=== PATIENT | male | born 1935 | race Caucasian/White ===

== ENCOUNTER 2019-09-10 12:15 | Inpatient (IN) | payer MEDICARE ==
[2019-09-10] VITALS (14 sets, daily range): BP systolic 92–120; BP diastolic 53–73
[~2019-09-10] VITALS: Ht 177.8 cm; Wt 65.0 kg
[~2019-09-10 12:15] MED LIST: AMLODIPINE10 MG PO; CALCIUM + D600 MG PO; COLACE100 MG PO; COLACE50 MG PO; FLEET RE; FLEXERIL10 MG PO; FOLIC ACID1 MG PO; HYDROCO/APAP1 T13 OR; IPRATROPIU0.5 MG/3 M NEB; LEVAQUIN500 MG PO; LORTAB 10 PO; MEDDOSEPAK PO; METHOTREXATE2.5 MG PO; METOPROL TAR25 MG PO; METOPROLOL25 M1 OR; MILK OF MAG30 ML/UDC PO; MIRALAX3350 N1 PO; NORCO1 TA1 PO; OMEPRAZOLE20 MG PO; OXYCODO-APAP1 TA1 OR; OXYCODONE HCL5 MG PO; OXYCODONE15 MG OR; PERCOCET 5/325M1 TAB PO; PREDNISONE20 MG PO; SM OMEPRAZOL20 MG OR; STOOL SOFTENER100 MG OR; ULTRAM50 MG OR
--- NOTE | 2019-09-10 12:15 | NUR ---
PT TO ROOM VIA EMS STRETCHER. PT POOR HISTORIAN AND HARD OF HEARING.
--- NOTE | 2019-09-10 12:30 | NUR ---
ADENOSINE 12MG RAPID IVP ADMINISTERED FOR HR 167. PT WITH COUGH AND SOB. DR TURCIOS AT BEDSIDE, NO NOTABLE CHANGE IN HR,SEE NEW ORDERS
[2019-09-10 12:57] LABS: HEMATOCRIT 40.9 % (39.0-50.0); HEMOGLOBIN 14.1 g/dl (14.0-18.0); IMMATURE GRANULOCYTES 0.4 % (0.0-5.0); MEAN CORPUSCULAR HGB 29.9 pG CALC (26.0-32.0); MEAN CORPUSCULAR HGB CONC 34.5 g/L CALC (32.0-36.0); NEUT# 7.19 thou/uL (1.82-7.42); RED BLOOD COUNT 4.71 mill/uL (4.70-6.10); RED CELL DISTRI WIDTH 13.4 % (11.5-15.5)
--- NOTE | 2019-09-10 12:57 | NUR ---
HR DECREASED TO 97 AT THIS TIME; CARDIZEM DRIP INFUSING AT 10MG/HR TO LFA
[2019-09-10 12:58] LABS: MEAN CELL VOLUME 86.8 fL CALC (80.0-100.0)
[2019-09-10 13:07] LABS: ALBUMIN 3.2 g/dL (3.2-5.0); ALKALINE PHOSPHATASE 101 u/l (38-126); ANION GAP 15 (6-22 (CALC)); BUN 17 mg/dL (8-23); BUN/CREATININE RATIO 31 (12-20 (CALC)); CARBON DIOXIDE 21 mmol/l (22-30); CHLORIDE 102 mmol/l (95-108); CREATININE 0.6 mg/dL (0.7-1.3); GFR > 60 ML/MIN (>=60 (CALC)); GFR FOR AFR.AMER. > 60 ML/MIN (>=60 (CALC)); POTASSIUM 3.6 mmol/l (3.5-5.1); SGOT/AST 41 u/l (19-48); SODIUM 134 mmol/l (137-146); TOTAL PROTEIN 7.4 g/dL (6.3-8.2)
--- NOTE | 2019-09-10 13:15 | NUR ---
CARDIZEM TITRATED TO 15MG/HR TO 18G LFE; HR READING 103; B/P 114/77
[2019-09-10 13:16] LABS: ACT PARTIAL THROMBO TIME 30.1 SECONDS (20.0-32.5); D-DIMER 1.35 mg/L (0.19-0.60); INTERNATIONAL NORMALIZED RATIO 1.2 RATIO (0.7-1.3)
[2019-09-10 13:19] LABS: MYOGLOBIN 218 ng/mL (0 - 121)
--- NOTE | 2019-09-10 14:10 | NUR ---
PT RESTING ON STRETCHER; SANDWITCH GIVE; CARDIZEM INFUSING @15MG/HR; VSS; STRONG PRODUCTIVE COUGH NOTED; ANTIBIOTICS INFUSING TO RAC SITE APPEARS HEALTHY
--- NOTE | 2019-09-10 15:11 | NUR ---
PT RESTING ON STRETCHER; VSS; CARDIZEM INFUSING @15MG/ML; HR 94; PO FLUIDS PROVIDED; AWAITING ORDERS TO ICU AT THIS TIME
--- NOTE | 2019-09-10 15:40 | NUR ---
INITIATED NEB TX FOR AUDIBLE WHEEZING AND O2 SAT 93% ON O2@2LPM VIA NC, PT HAS LOOSE PRODUCTIVE YELLOW SPUTUM.ORDER RECEIVED FROM JOHN MELENDEZ APRN
--- NOTE | 2019-09-10 16:00 | NUR ---
PT TRANSPORTED TO ICU VIA STRETCHER ON CONTINUOUS COMMUNITY RECREATION COORDINATOR IN NO OBVIOUS DISTRESS
--- NOTE | 2019-09-10 16:06 | NUR ---
male pt received from ER via stretcher accompanied by Juan José Rose RN to ICU bed 4 in stable condition; pt able to assist with transfer to bed; admission assessment completed at this time; pt very very hard of hearing; pt also a poor poor histoian; h&p obtained from prev admission/ sbar; pt c/c of the "flu"; pt denies pain; no n/v noted; resp even and unlabored; exertional sob noted; lungs coarse with wheezing throughout; skin color wnl; o2 per nc at 3l; productive cough of greenish thick sputum; hr reg; weak pedal pulses; no edema noted; sr on monitor; abd soft with bs present; no bm noted per automobile and property underwriter; no urine to inspect at this time; urinal placed at bedside; #18 ems site to lfa patent with cardizem gtt infusing at 15mg/hr; #18 flushed and patent to rac; no redness or edema noted at sites; pt admits to smoking marijuana and drinking beer; plan of care/ meds explained; call light within reach; will continue to monitor
--- NOTE | 2019-09-10 17:30 | NUR ---
Raji Robles NP called per this creative services writer; neb tx requested for wheezing and sob; will continue to monitor
--- NOTE | 2019-09-10 18:06 | NUR ---
awake in bed; no apparent distress noted; resp even and unlabored; wheezing throughout; o2 per nc; iv intact and patent with cardizem gtt infusing at 15 mg/hr; no redness or edema noted at site; sr on monitor; cardizem gtt titrated to 10 mg/hr for bp of 98/61; call light within reach
--- NOTE | 2019-09-10 18:25 | NUR ---
Dr Byrnes present at bedside to assess pt and discuss plan of care
--- NOTE | 2019-09-10 19:45 | NUR ---
PATIENT WAS NOTIFIED OF CT THORAX ORDER, HE AGREES. PATIENT WAS TRANSFERRED TO WITH ASSIST X1, ON 3L/MIN NC.
--- NOTE | 2019-09-10 20:02 | NUR ---
PATIENT SAFELY TRANSFERRED BACK TO BED, ON 3L/MIN NC./ AUDIBLE WHEEZES AND DOES BECOME SOB WITH EXERTION. CALL LIGHT WITHIN REACH. WILL CONTINUE TO MONITOR.
--- NOTE | 2019-09-10 21:10 | NUR ---
PATIENT WAS ABLE TO VOID IN URINAL, UA COLLECTED. PATIENT ALSO AGREES TO GET WASHED UP.
[2019-09-10 21:26] LABS: URINE BLOOD DIPSTICK TRACE-INTACT (NEGATIVE); URINE COLOR AMBER; URINE GLUCOSE - DIPSTICK NEGATIVE (NEGATIVE); URINE KETONE NEGATIVE (NEGATIVE); URINE LEUK ESTERASE NEGATIVE (NEGATIVE); URINE NITRITE - DIPSTICK NEGATIVE (Negative); URINE PROTEIN - DIPSTICK 30 mg/dL (NEG-TRACE)
[2019-09-10 21:27] LABS: URINE BILIRUBIN - DIPSTICK NEGATIVE (NEGATIVE)
--- NOTE | 2019-09-10 21:45 | NUR ---
PATIENT WAS ABLE TO SIT ON SIDE OF BED TO GET WASHED UP, HE WAS ABLE TO PARTICIPATE. DOES BECOME SOB WITH EXERTION, ON 3L/MIN NC, SATS 95%. SR ON TELEMETRY. CLEAN LINEN PLACED ON BED WELL. PATIENT OFFERED A SNACK AND AGREED TO ICE CREAM. HOB NEAR 90 DEGREES. CALL LIGHT WITHIN REACH.
--- NOTE | 2019-09-10 23:56 | NUR ---
CSLLED ND SPOKE TO DR LÓPEZ REGARDING PATIENT HAS BEEN COUGHING THROUGH THE NIGHT, NEW PRN MEDICATION ORDERS RECEIVED FOR COUGH.
[2019-09-11] VITALS (11 sets, daily range): BP systolic 115–153; BP diastolic 65–97
--- NOTE | 2019-09-11 00:50 | NUR ---
PATIENT WAS PULLED UP IN BED PER REQUEST, COUGH MEDICATION GIVEN. NO OTHER NEEDS AT THIS TIME. CALL LIGHT WITHIN REACH.
--- NOTE | 2019-09-11 02:00 | NUR ---
PATIENT LIES ON HIS R-SIDE. RESTS WITH EYES CLOSED, HOB 30 DEGREES. NO COUGHING AT THIS TIME. CALL LIGHT WITHIN REACH. WILL CONTINUE TO MONITOR.
--- NOTE | 2019-09-11 04:10 | NUR ---
PATIENT LIES ON HIS LEFT SIDE. HE DESATED DOWN TO 85%, HIS NASAL CANNULA WAS OFF, PATIENT EDUCATED TO KEEP IT ON. NO ACUTE DISTRESS SHOWN, INTERMITTENT COUGHING. NO NEEDS AT THIS TIME. CALL LIGHT WITHIN REACH. WILL CONTINUE TO MONITOR.
[2019-09-11 05:40] LABS: HEMATOCRIT 35.9 % (39.0-50.0); HEMOGLOBIN 12.2 g/dl (14.0-18.0); MEAN CELL VOLUME 87.1 fL CALC (80.0-100.0); MEAN CORPUSCULAR HGB 29.6 pG CALC (26.0-32.0); RED BLOOD COUNT 4.12 mill/uL (4.70-6.10); RED CELL DISTRI WIDTH 13.6 % (11.5-15.5)
--- NOTE | 2019-09-11 05:49 | NUR ---
PATIENT LFA EMS SITE DISCONTINUED. NEW ICED WATER PROVIDED. NEW URINAL, AND CUP PROVIDED FOR HIM TO SPIT IN. NEW SHEET AND WARM BLANKET PROVIDED. INTERMITTENT COUGH. CALL LIGHT WITHIN REACH.
--- NOTE | 2019-09-11 06:00 | NUR ---
PATIENT LAYS ON HIS LEFT SIDE, NO ACUTE DISTRESS SHOWN. NO NEEDS AT THIS TIME. IS AWAKE. CALL LIGHT WITHIN REACH.
[2019-09-11 06:03] LABS: ANION GAP 11 (6-22 (CALC)); BUN 14 mg/dL (8-23); BUN/CREATININE RATIO 36 (12-20 (CALC)); C-REACTIVE PROTEIN > 9.0 mg/dL (0-0.9); CARBON DIOXIDE 22 mmol/l (22-30); CHLORIDE 107 mmol/l (95-108); CREATININE 0.4 mg/dL (0.7-1.3); GFR > 60 ML/MIN (>=60 (CALC)); GFR FOR AFR.AMER. > 60 ML/MIN (>=60 (CALC)); MAGNESIUM 1.9 mg/dL (1.6-2.3); POTASSIUM 3.8 mmol/l (3.5-5.1); SODIUM 136 mmol/l (137-146)
--- NOTE | 2019-09-11 06:04 | NUR ---
RT IN ROOM TO PERFORM EKG
--- NOTE | 2019-09-11 06:45 | NUR ---
RECIEVED REPORT FROM MARTHA LIVINGSTON. ASSUMED PT CARE.
--- NOTE | 2019-09-11 07:30 | NUR ---
PT RESTING IN BED, VERY WAINWRIGHT. PT A&OX3, ABLE TO MAKE NEEDS KNOWN.PT CONTINUES WITH PRODUCTIVE COUGH, BLOODY SPUTUM, CULTURE PENDING. RESPIRATIONS EVEN/UNLABORED, BCK203% PT REMAINS SB/SR ON TELEMTRY WITH 1*BLOCK. PT REMAINS WEAK WITH AX1, BSX4 ACTIVE, LBM 10-16-19. 18G TO RAC WITH NS@100ML/HR, NO S/S OF INFILTRATION OR INFECTION AT SITE. CALL LIGHT IN REACH, WILL MONITOR.
--- NOTE | 2019-09-11 08:00 | NUR ---
PT REPOSITIONED, BREAKFAST TRAY SET UP.
--- NOTE | 2019-09-11 09:30 | NUR ---
DR. VALLE AT BEDSIDE FOR ASSESSMENT AND TO DISCUSS PLAN OF CARE. NEW ORDERS RECIEVED.
--- NOTE | 2019-09-11 10:30 | NUR ---
PT FRIEND/CAREGIVER JJ ARRIVED AT BEDSIDE. PT GAVE PERMISSION TO DISCUSS CARE/PROGNOSIS. JJ # [phone]. JJ STATED HE HAS RECIEVED CARE WITH [facility] IN [place], BUT NOT IN A LONG TIME, COULD NOT GIVE ANY HISTORY ON PT.
--- NOTE | 2019-09-11 11:30 | NUR ---
REPOSITIONED PT, LUNCH TRAY SET UP. PT COUGHING LESS, NOTED DECREASE IN COUGHING AND SPUTUM PRODUCTION. WILL MONITOR.
--- NOTE | 2019-09-11 12:56 | NUR ---
PT RESTING IN BED, RESPIRATION EVEN/UNLABORED, O2 VIA NC CONTINUES, PT OFFERS NO COMPLAINTS AT THIS TIME. WILL MONITOR.
--- NOTE | 2019-09-11 14:47 | NUR ---
PT RESTING IN BED WITH EYES CLOSED, RESPIRATIONS EVEN/UNLABORED. WILL MONITOR
--- NOTE | 2019-09-11 15:45 | NUR ---
FRIEND JJ ARRIVED AT BEDSIDE. PT COUGHING UP BLOOD TINGED SPUTUM, COUGH SYRUP GIVEN ORDERED. PT REPOSITIONED FOR COMFORT. PT WATCHING TV.
--- NOTE | 2019-09-11 17:03 | NUR ---
PT RESTING IN BED WITH EYES CLOSED, NO S/S OF DISTRESS AT THIS TIME. WILL MONITOR.
--- NOTE | 2019-09-11 17:55 | NUR ---
DINNER TRAY ARRIVED ON UNIT. PT REPOSITIONED, TRAY SET UP FOR PT.
--- NOTE | 2019-09-11 18:50 | NUR ---
PATIENT SHOWS NO ACUTE DISTRESS, DRINKS HIS ICED WATER/, HAS NO COMPLAINTS. INTERMITTENT COUGHING OBSERVED. CALL LIGHT WITHIN REACH.
--- NOTE | 2019-09-11 19:35 | NUR ---
PATIENT LAYS ON HIS LEFT SIDE. HOB ABOUT 25 DEGREES. HE DOES HAVE INTERMITENT COUGHING, BLOOD TINGED. SR ON TELEMETRY, DID HAVE 6 BEATS OF V-TACH, ASYMPTOMATIC. BECOMES SOB ONLY WITH EXERTION. USED HIS URINAL, VOIDED YELLOW AND CLEAR URINE. RAC 18G IV INTACT AND HAS NS AT 100ML/HR INFUSING. JANET HOSE INTACT. HEAD TO TOE NURSING ASSESSMENT PERFORMED, SEE CHARTING. AFEBRILE. NO COMPLAINTS OF PAIN. NO OTHER NEEDS AT THIS TIME. POC FOR TONIGHT DISCUSSED. CALL LIGHT WITHIN REACH. WILL CONTINUE TO MONITOR.SELF REPOSITIONS FROM SIDE TO SIDE.
--- NOTE | 2019-09-11 21:20 | NUR ---
HAS LEFT, DID SUCTIONING AND MOUTH CARE, REQUESTED TO PROVIDE MOUTH SWABS SOAKED WITH ICED WATER BECAUSE PATIENT LIKES TO SUCK ON THEM, PATIENT ABLE TO ANSWER HIS BY NODDING HIS HEAD YEW OR NO WHEN SHE ASKED HIM IF HE WANTED MORE OF THE SWABS. PATIENT WAS ALSO SWITCHED TO NC AT 6L/MIN DUE TO HIM TRYING TO TAKE THE NONREBREATHER OFF BY MANEUVERING IT WITH HIS MOUTH AND REQUESTED TO PLACE PATIENT ON NC. WILL CONTIUE TO MONITOR.
--- NOTE | 2019-09-11 21:55 | NUR ---
PATIENT LAYS ON HIS LEFT SIDE. RESTS WITH EYES CLOSED. NO ACUTE DISTRESS SHOWN. CALL LIGHT WITHIN REACH. WILL CONTINUE TO MONITOR.
--- NOTE | 2019-09-11 22:35 | NUR ---
PATIENT TRIED TO GET OUT OF BED. WAS TRYING TO PULL OFF HIS TELEMETRY AND PULSE OX OFF, STATES, "I GOTTA GO PEE." PATIENT WAS ASISSTED TO BSC WITH ASSIST X2. ONLY VOIDED. WAS WASHED UP. LINENS CHANGED. NOW CALM AND LAYS ON HIS LEFT SIDE. CALL LIGHT WITHIN REACH.
--- NOTE | 2019-09-11 23:35 | NUR ---
PROVIDED PATIENT WITH WET SWAB AND ALSO SUCTIONED, NO SECRETIONS NOTED. AGONAL BREATHING PRESENT. SATS 94% ON NOW 5L/MIN NC. REMAINS DRY, NO URINE NOTED. WILL CONTINNUE TO MONITOR.
[2019-09-12] VITALS (11 sets, daily range): BP systolic 121–154; BP diastolic 67–91
--- NOTE | 2019-09-12 00:50 | NUR ---
PATIENT WAS PULLED UP. USED URINAL. BECOMES SOB WITH EXERTION, AUDIBLE WHEEZING. NO OTHER NEEDS AT THIS TIME. CALL LIGHT WITHIN REACH.
--- NOTE | 2019-09-12 02:00 | NUR ---
PATIENT LIES ON HIS LEFT SIDE, NO ACUTE DISTRESS SHOWN, RESTS WITH EYES CLOSED. CALL LIGHT WITHIN REACH.
--- NOTE | 2019-09-12 04:00 | NUR ---
PATIENT LAYS ON HIS LEFT SIDE. RESTS WITH EYES CLOSED. NO ACUTE DISTRESS SHOWN. NO NEEDS AT THIS TIME, CALL LIGHT WITHIN REACH.
--- NOTE | 2019-09-12 05:29 | NUR ---
PATIENT HAS INTERMITTENT COUGHING, COUGH MEDICATION PROVIDED. REQUESTS TV ON, NOW WATCHING TV. NO OTHER NEEDS AT THIS TIME. CALL LIGHT WITHIN REACH.
--- NOTE | 2019-09-12 06:45 | NUR ---
RECIEVED REPORT FROM MARTHA LIVINGSTON. ASSUMED PT CARE.
--- NOTE | 2019-09-12 06:45 | NUR ---
RECIEVED REPORT FROM MARTHA LIVINGSTON. ASSUMED PT CARE.
--- NOTE | 2019-09-12 07:11 | NUR ---
PT RESTING IN BED WITH EYES CLOSED,COMFORT CARE ONLY. REMAINS MOSTLY NON-RESPONSIVE, WILL OPEN EYES OCCASIONALLY WITH CARE OR REPOSITIONING. RESPIRATIONS SHALLOW/AGONAL, 02@5LPM VIA NC. MOUTHCARE AND PERICARE DONE. AFEBRILE. PT ST ON TELEMETRY, HR 101. 22G TO LAC/SL, FLUSHES WITHOUT DIFFICULTY, NO S/S OF INFILTRATION OR INFECTION AT SITE. DROPLET PRECATIONS REMAIN. WILL MONITOR CLOSELY.
--- NOTE | 2019-09-12 07:15 | NUR ---
PT REPOSITIONED, SITTING ON SIDE OF BED, BREAKFAST TRAY SET UP.
--- NOTE | 2019-09-12 07:19 | NUR ---
JESSICA RN WITH [facility] CALLED, NURSE WILL BE HERE APPROX 10:30-11AM.
--- NOTE | 2019-09-12 07:50 | NUR ---
PT SITTTING UP IN BED WATCHING TV, A&OX3, ABLE TO MAKE NEEDS KNOWN. IQUGMIUT. SOB WITH EXERTION, AUDIBLE WHEEZING THROUGHOUT, SA02@93% ON 3LPM VIA NC, AFEBRILE, CONTINUES WITH PRODUCTIVE COUGH, CLEAR THICK SPUTUM WITH SCANT BLOOD TINGE, MUCH BETTER THAN YESTERDAY. ABDOMEN SOFT, NON TENDER, BSX4 ACTIVE. CALL LIGHT IN REACH, WILL MONITOR.
--- NOTE | 2019-09-12 08:56 | NUR ---
LORI BARRERA AT BEDSIDE FOR ASSESSMENT AND TO DISCUSS PLAN OF CARE.
--- NOTE | 2019-09-12 09:19 | NUR ---
DAUGHTER NICK ARRIVED AT BEDSIDE
--- NOTE | 2019-09-12 10:13 | NUR ---
ARRIVED AT BEDSIDE, SWABBING PT MOUTH WITH ICE WATER. [facility] RN AND PT DAUGHTER REMAIN AT BEDSIDE. PER [facility] NURSE ATTEMPTING TO MAKE ARRANGEMENTS TO TRANSFER PT HOME WITH HOSPICE CARE. WILL MONITOR
--- NOTE | 2019-09-12 10:18 | NUR ---
PT SITTING UP IN BED, WATCHING TV. CONTINUES INTERMITTENT COUGH, PRODUCING THICK CLEAR MUCUS, SCANT AMOUNT OF BLOOD TINGE CONTINUES. AUDIBLE WHEEZING REMAINS. PT OFFERS NO COMPLAINTS AT THIS TIME. CALL LIGHT IN REACH. WILL MONITOR.
--- NOTE | 2019-09-12 11:00 | NUR ---
DR. VALLE AND LORI BARRERA AT BEDSIDE FOR ASSESSMNET AND TO DISCUSS PLAN OF CARE, NEW ORDERS RECIEVED.
--- NOTE | 2019-09-12 11:20 | NUR ---
XRAY AT BEDSIDE
--- NOTE | 2019-09-12 11:34 | NUR ---
MAURIZIO MARTINO ARRIVED AT BEDSIDE.
--- NOTE | 2019-09-12 11:45 | NUR ---
INSERT 16FR HUBBARD FOR STRICT I&O'S USING STERILE TECHNIQUE, 10ML BALLOON INFLATED, IMMEDIATE URINE RETURN. PT TOLERATED WELL.
--- NOTE | 2019-09-12 12:03 | NUR ---
PT REPOSITINED, LUNCH TRAY SET UP
--- NOTE | 2019-09-12 13:24 | NUR ---
PT AT BEDSIDE FOR EVALUATION.
--- NOTE | 2019-09-12 14:03 | NUR ---
PT RESTING IN BED, PRODUCTIVE COUGH CONTINUES, 1800ML URINE OP. HUBBARD REMAINS PATENT, DRAINING TO BSD VIA GRAVITY. CALL LIGHT IN REACH. WILL MONITOR.
--- NOTE | 2019-09-12 14:30 | NUR ---
PT FRIEND AT BEDSIDE FOR VISIT
--- NOTE | 2019-09-12 15:00 | NUR ---
RT AT BEDSIDE FOR TX.
--- NOTE | 2019-09-12 15:26 | NUR ---
PT RESTING IN BED WITH EYES CLOSED, OFFERS NO COMPLAINTS AT THIS TIME.
--- NOTE | 2019-09-12 16:51 | NUR ---
PT RESTIN IN BED , WATCHING TV. HUBBARD REMAINS PATENT DRAINING CLEAR YELLOW URINE TO BSD VIA GRAVITY. SR ON TELEMETRY, HR 75. INTERMITTENT COUGH CONTINUES. CALL LIGHT IN REACH, WILL MONITOR.
--- NOTE | 2019-09-12 17:13 | NUR ---
PT REPOSITIONED, DINNER TRAY SET UP.
--- NOTE | 2019-09-12 18:07 | NUR ---
PT RESTING IN BED WATCHING TV, STATED. "MAN THEY MUST HAVE PULLED 2 GALLON OFF ME, i FEEL SO MUCH BETTER." CALL LIGHT IN REACH, WILL MONITOR.
--- NOTE | 2019-09-12 19:00 | NUR ---
RECEIVED REPORT FROM AM NURSE. PATIENT CURRENTLY IN BED. PATIENT IN NO DISTRESS. PATIENT'S VITALS STABLE. ON OXYGEN 3L. WILL CONTINUE TO MONITOR.
--- NOTE | 2019-09-12 20:16 | NUR ---
BRENDA ROUNDED ON. PATIENT CURRENTLY IN BED RESTING. VITALS STABLE. NO SIGNS OF DISTRESS. PATIENT SELF REPOSITIONED. PATIENT PROVIDED WITH ICE WATER. NO OTHER REQUEST. WILL CONTINUE TO MONITOR.
--- NOTE | 2019-09-12 22:00 | NUR ---
spoke to regarding the patient having crackles and increased wheezing. dr. goldberg ordered 40mg lasix iv and also labs for the morning. patient is resting with no sign of distress. vitals stable. patient continues with nasal cannula 3l. will continue to monitor patient.
[2019-09-13] VITALS (17 sets, daily range): BP systolic 107–168; BP diastolic 60–91
--- NOTE | 2019-09-13 | NUR ---
patient rounded on. patient with increased cough, patient medicated with cough syrup. patient bringing up yellow colored phlegm. patient in no distress. patient vitals stable. will continue to monitor.
--- NOTE | 2019-09-13 02:00 | NUR ---
PATIENT SLEEPING. VITALS STABLE. WILL CONTINUE TO MONITOR.
--- NOTE | 2019-09-13 03:13 | NUR ---
PATIENT CONTINUES TO COUGH, BUT LESSENED. PATIENT SATS >93% ON NC 3L. PATIENT SLEEPING. NO SIGNS OF DISTRESS. VITALS STABLE. HUBBARD WITH GOOD URINE OUTPUT, URINE YELLOW AND CLEAR. WILL CONTINUE TO MONITOR PATIENT.
--- NOTE | 2019-09-13 04:00 | NUR ---
patient rounded on. patient awake resting in bed. patient with no signs of distress. vitals stable. will continue to monitor.
[2019-09-13 05:15] LABS: HEMATOCRIT 36.5 % (39.0-50.0); HEMOGLOBIN 12.6 g/dl (14.0-18.0); IMMATURE GRANULOCYTES 0.8 % (0.0-5.0); MEAN CELL VOLUME 86.1 fL CALC (80.0-100.0); MEAN CORPUSCULAR HGB 29.7 pG CALC (26.0-32.0); MEAN CORPUSCULAR HGB CONC 34.5 g/L CALC (32.0-36.0); NEUT# 11.57 thou/uL (1.82-7.42); RED BLOOD COUNT 4.24 mill/uL (4.70-6.10); RED CELL DISTRI WIDTH 13.3 % (11.5-15.5)
[2019-09-13 05:33] LABS: ALBUMIN 2.8 g/dL (3.2-5.0); ALKALINE PHOSPHATASE 87 u/l (38-126); BUN 14 mg/dL (8-23); BUN/CREATININE RATIO 30 (12-20 (CALC)); CHLORIDE 96 mmol/l (95-108); CREATININE 0.4 mg/dL (0.7-1.3); GFR > 60 ML/MIN (>=60 (CALC)); GFR FOR AFR.AMER. > 60 ML/MIN (>=60 (CALC)); POTASSIUM 3.1 mmol/l (3.5-5.1); SGOT/AST 25 u/l (19-48); SODIUM 134 mmol/l (137-146); TOTAL PROTEIN 6.3 g/dL (6.3-8.2)
[2019-09-13 05:43] LABS: ANION GAP 10 (6-22 (CALC)); CARBON DIOXIDE 31 mmol/l (22-30)
[2019-09-13 05:44] LABS: BILIRUBIN, TOTAL 0.5 mg/dL (0.0-1.4)
--- NOTE | 2019-09-13 06:05 | NUR ---
RT AT BEDSIDE. PATIENT RESTING IN BED EATING. PATIENT REPOSITIONED IN BED. PATIENT WITH NO SIGNS OF DISTRESS. PT CONTINUES TO COUGH. CUP WITH SPUTUM AT BEDSIDE. NC IN PLACE 3L WITH OXYGEN SAT >93%. PATIENT WITH NO REQUEST. VITALS STABLE. WILL CONTINUE TO MONITOR.
--- NOTE | 2019-09-13 07:00 | NUR ---
REPORT RECEIVED FROM ESSIERN;PT RESTING IN SEMI FOWLERS POSITION,A&O X4;INTRODUCED SELF TO PT AND POC DISCUSSED;PT NOTED TO BE VERY HARD OF HEARING, BUT ABLE TO COMMUNICATE THROUGH WRITTEN COMMUNICATION;PT DENIES ANY CURRENT PAIN OR DISCOMFORTS,PAIN SCALE AND REPORTING EDUCATED;ASSESSMENT COMPLETED;RESPIRATIONS SHALLOW EVEN AND UNLABORED ON O2 @ 3L HUMIDIFED VIA NC, COARSE LUNG SOUNDS NOTED;PRODUCTIVE COUGH AT TIMES;ABDOMEN SOFT ON PALPATION AND ACTIVE IN ALL 4 QUADRANTS;LAST BM 09/10/19, WARM PRUNE JUICE AND MOM TO BE ADMINISTERED;HUBBARD CATHETER PATENT DRAINING CLEAR/YELLOW URINE TO GRAVITY, STAT LOCK NOTED TO RIGHT THIGH;STRONG PEDAL PULSES;GENERALIZED BRUSING NOTED, SKIN OTHERWISE INTACT;#18G TO RAC FLUSHED AND PATENT,SITE APPEARS HEALTHY;CARDIAC MONITORING READING ST 103;PT RE-POSITIONED INTO RECLINER WITH 1 PERSON ASSIST AND WEAK GAIT;BREAKFAST TRAY TO BE PROVIDED;PT DENIES ANY ADDITONAL NEEDS AND IS ENCOURAGED TO CALL FOR ASSISTANCE IF NEEDED;FALL PRECAUTIONS IN PLACE WITH CALL LIGHT IN REACH;WILL CONTINUE TO MONITOR
--- NOTE | 2019-09-13 08:45 | NUR ---
PT OOB RESTING IN RECLINER;RESPIRATIONS REMAIN EVEN AND UNLABORED ON O2 @ 3L VIA NC;FULL BATH PROVIDED INCLUDING HUBBARD CATHETER CARE, NEW GOWN, AND ORAL CARE;PT REPORTS LOWER BACK PAIN AND REQUESTS PRN PAIN MEDICATION, PT TO BE MEDICATED WITH PRN TYLENOL 650MG PO AND PILLOW PROVIDED FOR BACK;ABX HUNG AT THIS TIME AND INFUSING WITH EASE TO RAC;JOHN MELENDEZ,FITORP AT BEDSIDE DISCUSSING POC;PT DENIES ANY ADDITIONAL NEEDS;FRESH WATER PROVIDED;ENCOURAGED PT TO CALL FOR ASSISTANCE IF NEEDED;FALL PRECAUTIONS IN PLACE WITH CALL LIGHT IN REACH;WILL CONTINUE TO MONITOR
--- NOTE | 2019-09-13 09:07 | NUR ---
RT AT BEDSIDE ADMINISTERING BREATHING TREATMENT.
--- NOTE | 2019-09-13 09:20 | NUR ---
PT MEDICATED WITH PRN ROBITUSSIN 200MG PO FOR COUGH. IRA HUNG AT TO [facility] AT THIS TIME;PT DENIES ANY ADDITIONAL NEEDS;WILL CONTINUE TO MONITOR
--- NOTE | 2019-09-13 11:10 | NUR ---
PT OOB SLEEPING IN RECLINER;RESPIRATIONS EVEN AND UNLABORED ON O2 @ 3L VIA NC;NO S/S OF DISTRESS NOTED;CARDIAC MONITORING READING SR 73;HUBBARD CATHETER DRAINING CLEAR/YELLOW URINE TO GRAVITY;ASSESSMENT REMAINS UNCHANGED AT THIS TIME;FALL PRECAUTIONS REMAIN IN PLACE WITH CALL LIGHT IN REACH;WILL CONTINUE TO MONITOR
--- NOTE | 2019-09-13 11:35 | NUR ---
AND JOHN JIMENEZ,ANRP AT BEDSIDE DISCUSSING POC INCLUDING REHAB, PT VERBALIZES UNDERSTANDING.
--- NOTE | 2019-09-13 11:35 | NUR ---
VINCENT, CASE MANAGEMENT AT BEDSIDE
--- NOTE | 2019-09-13 13:11 | NUR ---
RESPIRATORY AT BEDSIDE ADMINISTERING BREATHING TREATMENT.
--- NOTE | 2019-09-13 14:10 | NUR ---
PT REMAINS OOB RESTING IN RECLINER WATCHING TV;RESPIRATIONS EVEN AND UNLABORED ON O2 @ 3L VIA NC;IV SOLUMEDROL PROVIDED PER ORDER;PT DENIES ANY CURRENT PAIN OR DISCOMFORTS;CARDIAC MONITORING READING SR 90'S;HUBBARD CATHETER REMAINS PATENT DRAINING TO GRAVITY WITH EASE;PT DENIES ANY ADDITIONAL NEEDS AT THIS TIME AND IS ENCOURAGED TO CALL FOR ASSISTANCE IF NEEDED;CALL LIGHT IN REACH;WILL CONTINUE TO MONITOR
--- NOTE | 2019-09-13 15:10 | NUR ---
PT RESTING IN RECLINER, RE-POSITIONED INTO BED PER REQUEST WITH ONE PERSON ASSIST AND WEAK GAIT;RESPIRATIONS REMAIN EVEN AND UNLABORED ON O2 @ 3L VIA NC;PT DENIES ANY CURRENT PAIN OR NEEDS;STEVIE CATETER PATENT;CARDIAC MONITORING IN PLACE;FRESH WATER PROVIDED;PT DENIES ANY ADDITIONAL NEEDS;ENCOURAGED TO CALL FOR ASSISTANCE IF NEEDED;FALL PRECAUTIONS IN PLACE WITH BED IN THE LOWEST POSITION AND CALL LIGHT IN REACH;WILL CONTINUE TO MONITOR
--- NOTE | 2019-09-13 15:50 | NUR ---
PT MEDICATED WITH PRN ROBITUSSIN 200MG PO PER REQUEST FOR COUGHING AND SCHEDULED POTASSIUM 40MEQ PO;PT DENIES ANY ADDITIONAL NEEDS;WILL CONTINUE TO MONITOR
--- NOTE | 2019-09-13 16:00 | NUR ---
UNABLE TO PRINT OUT TELE STRIP D/T PRINTER NOT WORKING.
--- NOTE | 2019-09-13 17:03 | NUR ---
RT AT BEDSIDE ADMINISTERING BREATHING TREATMENT.
--- NOTE | 2019-09-13 17:55 | NUR ---
PT RESTING IN SEMI FOWLERS POSITION REPORTS LOWER BACK PAIN RATING 8/10 ON THE PAIN SCALE AND REQUESTS PAIN MEDICATION;PT MEDICATED WITH PRN TYLENOL 650MG PO AT THIS TIME;PT RE-POSITIONED IN BED FOR COMFORT;RESPIRATIONS REMAIN EVEN AND UNLABORED ON O2 @ 3L VIA NC;IV SITE TO RAC PATENT;CARDIAC MONITORING READING SR 80'-90'S;HUBBARD CATHETER EMPTIED OF 950CC OF CLEAR/YELLOW URINE;PT DENIES ANY ADDITIONAL NEEDS AND IS ENCOURAGED TO CALL FOR ASSISTANCE IF NEEDED;FALL PRECAUTIONS IN PLACE WITH CALL LIGHT IN REACH;WILL CONTINUE TO MONITOR
--- NOTE | 2019-09-13 18:55 | NUR ---
RECEIVED REPORT FROM AM NURSE. PATIENT CURRENTLY IN BED. PATIENT IN NO DISTRESS. VITALS STABLE. WILL CONTINUE TO MONITOR PATIENT.
--- NOTE | 2019-09-13 20:26 | NUR ---
RESPIRATORY AT BEDSIDE. PATIENT DID HAVE EPISODE OF CONFUSION. PATIENT WAS STATING HE HAD TO PEE AND DID NOT REALIZE HE HAD A HUBBARD. PATIENT REORIENTED.
--- NOTE | 2019-09-13 22:01 | NUR ---
PATIENT ROUNDED ON. PATIENT IN BED- WITH NASAL CANNULA OFF. SAT >90%. NASAL CANNULA PLACED BACK ON. PATIENT CONTINUES TO COUGH AND PRODUCE SPUTUM. HUBBARD IN PLACE WITH CLEAR YELLOW URINE. PATIENTS LINENS CHANGED. PATIENT IN NO DISTRESS. NEW IV PLACE. VITALS STABLE. WILL CONTINUE TO MONITOR.
[2019-09-14] VITALS (16 sets, daily range): BP systolic 102–183; BP diastolic 56–105
--- NOTE | 2019-09-14 00:16 | NUR ---
PATIENT SLEEPING. PATIENTS VITALS STABLE. PT O2 >95% ON NASAL CANNULA 2L. PATIENT WITH NO SIGNS OF DISTRESS. WILL CONTINUE TO MONITOR.
--- NOTE | 2019-09-14 01:17 | NUR ---
PATIENT RESTING IN BED. VITALS OBTAINED- BLOOD PRESSURE 184/95. PLACED A CALL TO REGARDING ELEVATED BLOOD PRESSURE. I ALSO STATED THAT PATIENT WAS JUST RECENTLY HAVE A COUGHING SPELL. HE STATED TO RECHECK BLOOD PRESSURE WHEN PATIENT IS NOT COUGHING AND IF BLOOD PRESSURE CONTINUES TO RUN HIGH TO GIVE PATIENT CLONIDINE. WILL RECHECK AND CONTINUE TO MONITOR.
--- NOTE | 2019-09-14 02:49 | NUR ---
PATIENTS BLOOD PRESSURE REMAINS ELEVATED 179/90. PATIENT NO LONGER COUGHING. PATIENT ASLEEP. WILL GIVE CLONIDINE ORDERED. PATIENT IN NO SIGNS OF DISTRESS. PATIENT REMAINS ON O2 SATS >94%. WILL CONTINUE TO MONITOR PATIENT.
--- NOTE | 2019-09-14 04:00 | NUR ---
PATIENT SLEEPING. PATIENT WITH NO COMPLAINTS OF PAIN OR DISCOMFORT. PATIENT IN NO DISTRESS. PATIENT WITH NASAL CANNULA 2L. SATS >97%. PATIENTS HUBBARD WITH GOOD OUTPUT- CLEAR YELLOW URINE. WILL CONTINUE TO MONITOR PATIENT.
--- NOTE | 2019-09-14 05:00 | NUR ---
RT AT BEDSIDE. PATIENT AWAKE. PATIENT WITH NO SIGNS OF DISTRESS. PATIENT ADJUSTED IN BED. MEDICATIONS GIVEN. PATIENT WITH NO COMPLAINTS OF PAIN OR DISCOMFORT. PATIENTS VITALS STABLE- BLOOD PRESSURE BETTER. WILL CONTINUE TO MONITOR PATIENT.
[2019-09-14 05:26] LABS: HEMATOCRIT 40.3 % (39.0-50.0); HEMOGLOBIN 13.6 g/dl (14.0-18.0); MEAN CELL VOLUME 87.6 fL CALC (80.0-100.0); MEAN CORPUSCULAR HGB 29.6 pG CALC (26.0-32.0); MEAN CORPUSCULAR HGB CONC 33.7 g/L CALC (32.0-36.0); NEUT# 13.41 thou/uL (1.82-7.42); RED BLOOD COUNT 4.6 mill/uL (4.70-6.10); RED CELL DISTRI WIDTH 13.4 % (11.5-15.5)
[2019-09-14 05:47] LABS: BUN 14 mg/dL (8-23); BUN/CREATININE RATIO 34 (12-20 (CALC)); CARBON DIOXIDE 28 mmol/l (22-30); CHLORIDE 99 mmol/l (95-108); CREATININE 0.4 mg/dL (0.7-1.3); GFR > 60 ML/MIN (>=60 (CALC)); GFR FOR AFR.AMER. > 60 ML/MIN (>=60 (CALC)); SODIUM 133 mmol/l (137-146)
--- NOTE | 2019-09-14 05:50 | NUR ---
ASSISTED ACCOUNT DEVELOPMENT ASSOCIATE WITH POSITIONING PATIENT FOR XRAY.
[2019-09-14 05:52] LABS: ANION GAP 10 (6-22 (CALC))
[2019-09-14 05:53] LABS: POTASSIUM 4.1 mmol/l (3.5-5.1)
--- NOTE | 2019-09-14 06:03 | NUR ---
PATIENT AWAKE AND SITTING UP IN BED. PATIENT CONTINUES WITH COUGH- PATIENT WITH NASAL CANNULA 2L. PATIENT WITH NO COMPLAINTS OF PAIN OR DISCOMFORT. VITALS STABLE. BLOOD PRESSURE IMPROVING. WILL CONTINUE TO MONITOR PATIENT.
--- NOTE | 2019-09-14 06:55 | NUR ---
REPORT RECEIVED FROM MARTHA FOUNTAIN;PT APPEARS TO BE SLEEPING IN SEMI FOWLERS POSTIION;RESPIRATIONS EVEN AND UNLABORED ON O2 @ 3L VIA NC;NO S/S OF DISTRESS NOTED;CARDIAC MONITORING IN PLACE;FALL PRECAUTIONS NOTED WITH BED IN THE LOWEST POSITION AND CALL LIGHT IN REACH;WILL CONTINUE TO MONITOR
--- NOTE | 2019-09-14 07:15 | NUR ---
PT RESTING IN SEMI FOWLERS POSITION,A&O X4 BUT VERY HARD OF HEARING;WRITTEN COMMUNICATION PROVIDED AND INTRODUCED SELF TO PT AND POC DISCUSSED;PT DENIES ANY CURRENT PAIN OR DISCOMFORTS,PAIN SCALE AND REPORTING EDUCATED;ASSESSMENT COMPLETED;RESPIRATIONS EVEN AND UNLABORED,SHALLOW ON O2 @ 3L HUMIDIFIED VIA NC, COARSE LUNG SOUNDS;PRODUCTIVE COUGH AT TIMES;ABDOMEN DISTENDED/SOFT ON PALPATION AND ACTIVE IN ALL 4 QUADRANTS;HUBBARD CATHETER PATENT DRAINING CLEAR/YELLOW URINE TO GRAVITY WITH EASE, STAT LOCK TO RIGHT THIGH;STRONG PEDAL PULSES;GENERALIZED BRUISING NOTED BUT SKIN OTHERWISE INTACT;CARDIAC MONITORING READING SR 80'S-90'S;#24G TO RIGHT HAND AND #18G TO RAC FLUSHED AND PATENT, BOTH SITES APPEAR HEALTHY;PT ASSISTED TO RECLINER WITH 1 PERSON ASSIST AND WEAK GAIT;BATH,HUBBARD CARE, AND ORAL CARE PROVIDED;NEW LINENS AND GOWN APPLIED;BREAKFAST TRAY PROVIDED AND FRESH WATER AT THIS TIME;PT DENIES ANY ADDITIONAL NEEDS AND IS ENCOURAGED TO CALL FOR ASSISTANCE IF NEEDED;FALL PRECAUTIONS IN PLACE WITH CALL LIGHT IN REACH;WILL CONTINUE TO MONITOR
--- NOTE | 2019-09-14 09:01 | NUR ---
RT AT BEDSIDE ADMINISTERING BREATHING TREATMENT
--- NOTE | 2019-09-14 09:25 | NUR ---
PT OOB RESTING IN RECLINER;RESPIRATIONS EVEN AND UNLABORED ON O2 @ 3L VIA NC;PT DENIES ANY CURRENT PAIN OR NEEDS;IV SITE TO RAC REMOVED DUE TO EXPIRATION DATE WITH CATHETER INTACT;CARDIAC MONITORING IN PLACE READING SR 80'S-90'S;ABX INFUSING WITH EASE;CATHETER PATENT;PT DENIES ANY ADDITIONAL NEEDS AT THIS TIME AND IS ENCOURAGED TO CALL FOR ASSISTANCE IF NEEDED;CALL LIGHT IN REACH;WILL CONTINUE TO MONITOR
--- NOTE | 2019-09-14 11:10 | NUR ---
PT OOB RESTING IN RECLINER WATCHING TV;RESPIRATIONS EVEN AND UNLABORED,SHALLOW ON O2 @ 3L VIA NC;NON-PRODUCTIVE COUGH NOTED AT TIMES;PT DENIES ANY CURRENT PAIN OR DISCOMFORTS;CARDIAC MONITORING SR 80'S;HUBBARD CATHETER IN PLACE AND PATENT;PT DENIES ANY NEEDS AND IS ENCOURAGED TO CALL FOR ASSISTANCE IF NEEDED;ASSESSMENT REMAINS UNCHANGED AT THIS TIME;CALL LIGHT IN REACH;WILL CONTINUE TO MONITOR
--- NOTE | 2019-09-14 11:28 | NUR ---
AND JOHN MELENDEZ,ANRP AT BEDSIDE DISCUSSING POC INCLUDING PLANS TO BE TRANSPORTED TO MED/SURG AND POSSIBLE DISCHARGE TO REHAB TOMORROW 09/15/19.PT VERBALIZES UNDERSTANDING.
--- NOTE | 2019-09-14 12:35 | NUR ---
PT RE-POSITIONED INTO BED WITH A 1 PERSON ASSIST AND WEAK GAIT;RESPIRATIONS EVEN AND UNLABORED,SHALLOW ON O2 @ 3L VIA NC;PT DENIES ANY CURRENT PAIN OR DISCOMFORTS;CARDIAC MONITORING IN PLACE;IV SITE TO RH PATENT;RECTAL SUPPOSITORY ADMINISTERED AT THIS TIME FOR BOWEL MOVEMENT,PT TOLERATED WELL;PT DENIES ANY ADDITIONAL NEEDS;ENCOURAGED TO CALL FOR ASSISTANCE IF NEEDED;CALL LIGHT IN REACH;WILL CONTINUE TO MONITOR
--- NOTE | 2019-09-14 12:50 | NUR ---
REPORT CALLED TO CLAUDE DELA CRUZ ON MED/SURG.
--- NOTE | 2019-09-14 13:02 | NUR ---
RT AT BEDSIDE ADMINISTERING BREATHING TREATMENT.
--- NOTE | 2019-09-14 13:40 | NUR ---
PT TRANSFERRED TO MED/SURG ROOM 271 IN STABLE CONDITION VIA WHEELCHAIR. CARE RELINQUISHED TO CLAUDE DELA CRUZ AT THIS TIME.
--- NOTE | 2019-09-14 13:40 | NUR ---
PT ARRIVED TO MS2 RM 271 VIA WHEELCHAIR ACCOMPANIED BY PARAG ARCE. PT ALERT AND ORIENTED X3, BUT VERY HARD OF HEARING. WEIGHT OBTAINED ON STANDING SCALE, X2 ASSIST TO BED, VITALS OBTAINED. PT HAS A HUBBARD CATHETER DRAINING TO GRAVITY, #24 RH FLUSHED WELL, CALL LIGHT IN REACH,CONTINUE TO MONITOR.
--- NOTE | 2019-09-14 15:08 | NUR ---
PT RESTING IN BED, ORDERS TO REMOVE HUBBARD CATHETER, DISCUSSED WITH PT, VERBALIZED UNDERSTANDING. BALLOON DEFLATED AND CATHETER REMOVED WITHOUT DIFFICULTY, CATHETER INTACT, PERICARE PROVIDED. URINAL PLACED AT BEDSIDE, INSTRUCTED PT TO USE URINAL. CALL LIGHT IN REACH,CONTINUE TO MONITOR.
--- NOTE | 2019-09-14 16:37 | NUR ---
PT MEDICATED WITH ROBITUSSIN FOR COUGH, CALL LIGHT IN REACH,CONTINUE TO MONITOR. PT VOIDED 200CC YELLOW URINE IN URINAL
--- NOTE | 2019-09-14 19:12 | NUR ---
REPORT RECEIVED. PT. RESTING AND DENIES NEEDS. CALL LIGHT IS IN REACH. INSTRUCTED TO CALL FOR ANY OOB NEEDS; VERBALIZES UNDERSTANDING.
--- NOTE | 2019-09-14 20:38 | NUR ---
ASSESSMENT COMPLETED. IV SITE PATENT AND SL AND FLUSHED WITH NS WITHOUT DIFFICULTY. PT. IS VERY [place] AND ALERT WITH SOME FORGETFULLNESS NOTED; BED ALARM SET JUST IN CASE; PT. IS ABLE TO SHOW SOLAR ENERGY TECHNICIAN THE BUTTON TO PRESS IF ASSISTANCE IS NEEDED. TELEMETRY IN PLACE. PT. ABLE TO REPOSITION SELF. INCENTIVE SPIROMETER GIVEN AND PT. ABLE TO RETURN DEMONSTRATE AND PULL 750 AND DID 10 REPS AT THIS TIME; GOAL SET TO 1000 AND SET AT BEDSIDE. O2 INFUSING PER NC PER ORDER. INSTRUCTED TO CALL FOR ANY NEEDS. CALL LIGHT IS IN REACH. WILL CONTINUE TO MONTIOR.
--- NOTE | 2019-09-14 23:32 | NUR ---
PT. RESTING IN BED WITH INTERMITTENT COUGHING; WILL CONTINUE TO MONITOR. PARAFFINER IN AT BEDSIDE AND OBTIANING VS; BED ALARM ON. CALL LIGHT IS IN REACH.
[2019-09-15] VITALS (8 sets, daily range): BP systolic 145–168; BP diastolic 70–109
--- NOTE | 2019-09-15 00:27 | NUR ---
PT. RESTING IN BED AWAKE AND INTERMITTENTLY SAYING PROVOCATIVE THINGS TOWARDS STAFF. PT. IS RE-DIRECTED EACH TIME. WILL CONTINUE TO MONITOR.
--- NOTE | 2019-09-15 04:20 | NUR ---
MEDICATED WITH ORDERED PRN ROBITUSSIN FOR INTERMITTENT COUGH; PT. REMAINS AWAKE; URINAL EMPTIED AND CALL LIGHT IS IN REACH. BED ALARM IS IN ON.
[2019-09-15 04:42] LABS: HEMATOCRIT 42.1 % (39.0-50.0); HEMOGLOBIN 14.3 g/dl (14.0-18.0); IMMATURE GRANULOCYTES 1.8 % (0.0-5.0); MEAN CORPUSCULAR HGB 29.5 pG CALC (26.0-32.0); NEUT# 12.92 thou/uL (1.82-7.42); RED BLOOD COUNT 4.84 mill/uL (4.70-6.10); RED CELL DISTRI WIDTH 13.3 % (11.5-15.5)
[2019-09-15 05:07] LABS: ANION GAP 12 (6-22 (CALC)); BUN 21 mg/dL (8-23); BUN/CREATININE RATIO 44 (12-20 (CALC)); CARBON DIOXIDE 28 mmol/l (22-30); CHLORIDE 97 mmol/l (95-108); CREATININE 0.5 mg/dL (0.7-1.3); GFR > 60 ML/MIN (>=60 (CALC)); GFR FOR AFR.AMER. > 60 ML/MIN (>=60 (CALC)); POTASSIUM 4.8 mmol/l (3.5-5.1); SODIUM 132 mmol/l (137-146)
--- NOTE | 2019-09-15 06:15 | NUR ---
PT. TRIED TO URINATE IN URINAL AND URINATED IN BED; ASSISTED TO THE CHAIR AND GOWN AND LINENS CHANGED. PT. NOW SITTING UP IN CHAIR AND BED ALARM APPLIED. CALL LIGHT IS IN REACH. PO FLUIDS OFFERED. WILL CONTINUE TO MONITOR.
--- NOTE | 2019-09-15 07:00 | NUR ---
REPORT RECEIVED FROM ARARN;PT OOB RESTING IN RECLINER;INTRODUCED SELF TO PT AND POC DISCUSSED;PT NOTED TO BE [place] AND WRITTEN COMMUNICATION PROVIDED;RESPIRATIONS EVEN AND UNLABORED ON O2 @ 2L VIA NC;PT DENIES ANY CURRENT PAIN OR NEEDS;ENCOURAGED TO CALL FOR ASSISTANCE IF NEEDED;FALL PRECAUTIONS NOTED WITH BED ALARM ON FOR SAFETY;CALL LIGHT IN REACH;WILL CONTINUE TO MONITOR
--- NOTE | 2019-09-15 08:55 | NUR ---
TODAY'S AMPAC SCORE: 12 POINTS PT WAS SEEN FOR GT TODAY. HE HAD O2 VIA NASAL CANNULA SET AT 2L, SPO2 AT 96%. HE AMBULATED WITH RW AND CGA X 80 FT X 2 W/ SOB. THERAPIST WROTE ON PAPER TO COMMUNICATE WITH PT HE IS EXTREMELY [place] OR [place]. PT SAT DOWN [facility] TO TAKE A BREAK, CHECKED O2 ON ROOM AIR TO BE BETWEEN 96-97%. LOWEST SPO2 W/ O2 L OF O2 WAS NOTED DURING AMBULATION ~94-95%. PT DID BETTER TODAY THAN ON SUNDAY WHEN I FIRST EVALUATED HIM WITH AMPAC SCORE OF 9 POINTS. HE STILL POSES A RISK FOR FALLS AND WILL STILL BENEFIT FROM IN-PT REHAB FOR GENERAL CONDITIONING AND ENDURANCE. HE WAS OFFERED SBA AND VCS TO RETURN TO BED. NO ADVERSE RXNS NOTED OR REPORTED. REATTACHED O2 VIA NASAL CANNULA SET AT 2L.
--- NOTE | 2019-09-15 09:40 | NUR ---
PT RESTING IN SEMI FOWLERS POSITION;VS OBTAINED AND ASSESSMENT COMPLETED;PT DENIES ANY CURRENT PAIN OR DISCOMFORTS,PAIN SCALE AND REPORTING EDUCATED;RESPIRATIONS EVEN AND UNLABORED,SHALLOW ON O2 @ 2L VIA NC,COARSE LUNG SOUNDS;NON-PRODUCTIVE COUGH AT TIMES;ABDOMEN SOFT ON PALPATION AND ACTIVE IN ALL 4 QUADRANTS;STRONG PEDAL PULSES;SKIN INTACT;TELE MONITORING IN PLACE;#24G TO RIGHT HAND FLUSHED AND PATENT,SITE APPEARS HEALTHY AND ABX STARTED PER ORDER;PT DENIES ANY ADDITIONAL NEEDS AND IS ENCOURAGED TO CALL FOR ASSISTANCE IF NEEDED;FALL PRECAUTIONS IN PLACE WITH BED IN THE LOWEST POSITON AND CALL LIGHT IN REACH;WILL CONTINUE TO MONITOR
--- NOTE | 2019-09-15 11:21 | NUR ---
PT RESTING IN SEMI FOWLERS POSITION WITH VISITOR AT BEDSIDE;VISITOR REPORTS THAT SHE IS HIS "ROLL EDGE MACHINE OPERATOR" AND THAT HE WILL NOT BE GOING TO REHAB.RESPIRATIONS EVEN AND UNLABORED ON O2 @ 2L VIA NC;PT DENIES ANY CURRENT PAIN OR DISCOMFORTS;TELE MONITORING INPLACE;IV SITE TO PATENT;JOHN MELENDEZ,ANRP NOTIFIED OF VISITOR REQUEST TO SPEAK WITH HER;FALL PRECAUTIONS REMAIN IN PLACE;WITH CALL LIGHT IN REACH;WILL CONTINUE TO MONITOR
--- NOTE | 2019-09-15 13:20 | NUR ---
PT YELLING OUT, FOUND IN ROOM WITH OXYGEN OFF.PT REPORTS THAT BEFORE HIS VISITOR LEFT SHE TOLD HIM THAT "IF I GO TO REHAB SHE WILL KEEP MY DOGS" PT ALL UPSET WANTING TO LEAVE;PT UNFIT TO BE DISCHARGED HOME;OXYGEN REPLACED AND PT RE-POSITIONED IN BED;DUNCAN KULKARNI NOTIFIED. JOHN MELENDEZ TO NOTIFIY [place] [employer].
--- NOTE | 2019-09-15 13:40 | NUR ---
[employer] AT BEDSIDE OBTAINING PT STATEMENT.
--- NOTE | 2019-09-15 15:00 | NUR ---
PT APPEARS TO BE RESTING IN SEMI FOWLERS POSITION, CALM AT THIS TIME;RESPIRATIONS REMAIN EVEN AND UNLABORED ON O2 @ 2L VIA NC;PT DENIES ANY CURRENT PAIN OR NEEDS;TELE MONITORING IN PLACE;FALL PRECAUTIONS NOTED WITH BED ALARM ON FOR SAFETY AND CALL LIGHT IN REACH;WILL CONTINUE TO MONITOR
--- NOTE | 2019-09-15 17:30 | NUR ---
PT RESTING IN SEMI FOWLERS POSITION;PT DENIES ANY CURRENT PAIN OR DISCOMFORTS;PT NOTICEABLY ANXIOUS AND BP 168/109 HR 91;DUNCAN IZAGUIRRE NOTIFIED AND X1 DOSE OF ATIVAN 0.5MG PO ADMINISTERED;RESPIRATIONS EVEN AND UNLABORED ON O2 @ 2L VIA NC;TELE MONITORING IN PLACE;PT DENIES ANY ADDITIONAL NEEDS AND IS ENCOURAGED TO CALL FOR ASSISTANCE IF NEEDED;CALL LIGHT IN REACH;WILL CONTINUE TO MONITOR
--- NOTE | 2019-09-15 19:05 | NUR ---
REPORT RECEIVED FROM CLAUDE TUTTLE. PT RESTING IN BED. NO S/S OF DISTRESS AT THIS TIME. BED ALARM ACTIVE FOR PT SAFETY. WILL CONTINUE TO MONITOR.
--- NOTE | 2019-09-15 19:30 | NUR ---
PT SET OFF BED ALARM OFF. UPON ENTERING THE ROOM PT WAS SITTING ON THE SIDE OF THE BED, YELLING "I WANT TO GO HOME, GET ME MY WALKER. I AM GOING HOME." ATTEMPTED TO CALM PT. PT PULLED TELE OFF AND O2 OFF. O2 PLACED BACK ON PT. PT ASSISTED BACK INTO BED. MD TO BE NOTIFIED. BED ALARM ACTIVE FOR PT SAFETY. WILL CONTINUE TO MONITOR.
--- NOTE | 2019-09-15 22:45 | NUR ---
PT TRYING TO GET OUT OF BED, STATING HE WANTS TO GO HOME. PT ASKING IF PLUG MACHINE OPERATOR HAS A CAR AND WILL TAKE HIM HOME. PT PULLING AT TELE, AND O2. PT RESTLESS. NURSING INTERNAL CONTROLS MANAGER CAME UP TO ASSIST WITH PT. PT STATES HE'S HUNGRY AND CAN'T SLEEP. PT OFFERED A SNACK AND MD TO BE NOTIFIED. PT STATES IF HE CAN HAVE SOMETHING FOR SLEEP HE WILL STAY. SAFETY PRECAUTIONS IN PLACE. WILL CONTINUE TO MONITOR.
--- NOTE | 2019-09-15 23:00 | NUR ---
MD NOTIFIED, NEW ORDERS OBTAINED AND TO BE CARRIED OUT.
--- NOTE | 2019-09-16 00:49 | NUR ---
PT HAS A DRY COUGHING, PT MEDICATED PER EMAR ORDERS. NO S/S OF DISTRESS AT THIS TIME. BED ALARM ACTIVE FOR PT SAFETY. WILL CONTINUE TO MONITOR.
--- NOTE | 2019-09-16 04:00 | NUR ---
PT REMOVED IV. NEW IV STARTED #22 LFA, PATENT AND APPEARS HEALTHY. BED ALARM ACTIVE FOR PT SAFETY. WILL CONTINUE TO MONITOR.
[2019-09-16 04:35] VITALS: BP 150/92
--- NOTE | 2019-09-16 07:20 | NUR ---
REPORT RECEIVED FROM NERISRN;PT OOB RESTING IN RECLINER;PT NOTED TO BE VERY [place], WRITTEN COMMUNICATION PROVIDED;PT EXPRESSES WISHES TO GO HOME, "I NEED TO LEAVE AND SEE MY DOGS. DO YOU HAVE A CAR?";PT RE-ASSURED AND REINFORCED IMPORTANCE OF STAYING AT [facility],PT VERBALIZES UNDERSTANDING;PT DENIES ANY CURRENT PAIN;RESPIRATIONS SHALLOW ON O2 @ 2L VIA NC;TELE MONITORING IN PLACE;PT ENCOURAGED TO CALL FOR ASSISTANCE IF NEEDED;FALL PRECAUTIONS IN PLACE WITH BED ALARM ON FOR SAFETY AND CALL LIGHT IN REACH;WILL CONTINUE TO MONITOR
--- NOTE | 2019-09-16 08:20 | NUR ---
PT OOB RESTING IN RECLINER;PT REMAINS ADAMENT THAT HE IS GOING HOME, CONTINUED RE-ASSURANCE;VS OBTAINED AND ASSESSMENT COMPLETED;HR 123, PT IS VERY AGITATED;PT DENIES ANY CURRENT PAIN OR DISCOMFORTS,PAIN SCALE AND REPORTING EDUCATED;RESPIRATIONS SHALLOW ON O2 @ 2L VIA NC,NON-PRODUCTIVE COUGH AT TIMES;ABDOMEN SOFT ON PALPATION AND ACTIVE IN ALL 4 QUADRANTS;STRONG PEDAL PULSES;GENERALIZED BRUISING BUT SKIN INTACT;TELE MONITORING IN PLACE;#22G TO LEFT FOREARM FLUSHED AND PATENT,ABX HUN AT THIS TIME;PT DENIES ANY ADDITIONAL NEEDS EXECEPT "TO GO HOME, FIGURE OUT WHEN I CAN LEAVE";ALL SAFETY PRECAUTIONS REINFORCED WITH BED ALARM ON FOR SAFETY;CALL LIGHT IN REACH;WILL CONTINUE TO MONITOR
[2019-09-16 08:22] VITALS: BP 144/95
--- NOTE | 2019-09-16 08:37 | NUR ---
PHYSICAL THERAPY AT BEDSIDE WORKING WITH PATIENT.
--- NOTE | 2019-09-16 09:20 | NUR ---
PT ANXIOUS,ATTEMPTING TO GET UP AND OUT OF RECLINER STATING "IM GOING HOME WHERE MY LITTLE DOGS ARE. WHAT TIME DOES THE BANK CLOSE", ATTEMPTS TO RE-ORIENT UNSUCCESSFUL;RE-POSITIONED INTO BED WITH X2 PERSON ASSIST;RESPIRATIONS REMAIN SHALLOW AND UNLABORED ON O2 @ 2L VIA NC;PT RE-ENCOURAGED TO CALL FOR ASSISTANCE IF NEEDED;FALL PRECAUTIONS IN PLACE WITH BED ALARM ON FOR SAFETY;CALL LIGHT IN REACH;WILL CONTINUE TO MONITOR
--- NOTE | 2019-09-16 10:50 | NUR ---
PT SITTING AT NURSES STATION WITH WRITTER DUE TO INCREASED AGITATION;RESPIRATIONS REMAIN SHALLOW ON O2 @ 2L VIA NC;PT DENIES ANY CURRENT PAIN OR DISCOMFORTS;TELE MONITORING IN PLACE; AT SIDE;WILL CONTINUE TO MONITOR
[2019-09-16] MEDS ORDERED: Levaquin PO (10:52)
[2019-09-16] MEDS ORDERED: SEROQUEL25 MG PO (10:52)
[2019-09-16] MEDS ORDERED: LOPRESSOR25 M1 PO (10:52)
[2019-09-16] MEDS ORDERED: IPRATROPIU0.5 MG/3 M NEB (10:52)
[2019-09-16] MEDS ORDERED: PREDNISONE10 MG PO (10:52)
[2019-09-16] MEDS ORDERED: XANAX0.5 MG PO (10:52)
--- NOTE | 2019-09-16 11:00 | NUR ---
JOHN MELENDEZANRP AWARE OF ELEVATED BP AND HR DUE TO AGITATION.NO NEW ORDERS RECEIVED.
[2019-09-16 11:19] VITALS: BP 128/91
--- NOTE | 2019-09-16 11:25 | NUR ---
PT RESTING IN WHEELCHAIR WITH WRITTER AT SIDE;RESPIRATIONS EVEN AND UNLABORED ON O2 @ 2L VIA NC;PT DENIES ANY CURRENT PAIN BUT CONTINUES TO EXPRESS WISHES TO GO HOME;IV SITE REMOVED WITH CATHETER INTACT FOR D/C TO [facility];TELE MONITORING D/C;AWAITING [facility] STAFF FOR TRANSPORTATION.
--- NOTE | 2019-09-16 11:35 | NUR ---
Discharge instructions given. Patient verbalizes understanding of same. Discharged [facility] with [facility]. All belongings sent with pt. Pt transported to [facility] in stable condition accompanied by rehab staff member via wheelchair. rx in folder for transport.
--- NOTE | 2019-09-16 12:23 | NUR ---
ATTEMPTED TO CALL REPORTS TO [facility]. PER REHAB STAFF MEMBER ALL NURSING STAFF IS BUSY AT THIS TIME;NAME AND NUMBER LEFT FOR RETURN CALL BACK.
--- NOTE | 2019-09-16 13:08 | NUR ---
REPORT CALLED TO MARTHA ROBERT AT [facility]
== END 2019-09-16 11:32 | DRG 193 ==
LOC: ED 12:15 → ED-I 14:15 → ED 14:31 → ICU 14:32 → MS2 14:32
PROVIDERS: Family Medicine; Internal Medicine; Nurse Practitioner Family; ADMIT Internal Medicine; ATTEND Internal Medicine
PROC: 0T9B70Z Drainage of Bladder with Drainage Device, Via Natural or Artificial Opening (ICD-10-PCS; principal; 2019-09-12)
DX: J18.9 Pneumonia, unspecified organism (principal); J96.21 Acute and chronic respiratory failure with hypoxia; J44.1 Chronic obstructive pulmonary disease with (acute) exacerbation; I47.1 Supraventricular tachycardia; R04.2 Hemoptysis; J44.0 Chronic obstructive pulmonary disease with (acute) lower respiratory infection; R91.8 Other nonspecific abnormal finding of lung field; I11.0 Hypertensive heart disease with heart failure; I50.9 Heart failure, unspecified; H91.90 Unspecified hearing loss, unspecified ear; M06.9 Rheumatoid arthritis, unspecified; R33.9 Retention of urine, unspecified; E87.6 Hypokalemia; M62.81 Muscle weakness (generalized); T50.1X5A Adverse effect of loop [high-ceiling] diuretics, initial encounter; R41.3 Other amnesia; Z85.038 Personal history of other malignant neoplasm of large intestine
CPT/HCPCS: J1650; Q9967

== ENCOUNTER 2019-11-21 15:45 | Inpatient (IN) | payer MEDICARE ==
[~2019-11-21] VITALS: Ht 177.8 cm; Wt 77.3 kg
[~2019-11-21 15:45] MED LIST changes: +LOPRESSOR25 M1 PO; +Levaquin PO; +PREDNISONE10 MG PO; +SEROQUEL25 MG PO; +XANAX0.5 MG PO
[2019-11-21 18:06] LABS: HEMATOCRIT 38.2 % (39.0-50.0); HEMOGLOBIN 12.7 g/dl (14.0-18.0); IMMATURE GRANULOCYTES 0.4 % (0.0-5.0); MEAN CELL VOLUME 88.4 fL CALC (80.0-100.0); MEAN CORPUSCULAR HGB 29.4 pG CALC (26.0-32.0); MEAN CORPUSCULAR HGB CONC 33.2 g/L CALC (32.0-36.0); NEUT# 6.34 thou/uL (1.82-7.42); RED BLOOD COUNT 4.32 mill/uL (4.70-6.10); RED CELL DISTRI WIDTH 14.3 % (11.5-15.5)
[2019-11-21 18:07] LABS: URINE BILIRUBIN - DIPSTICK NEGATIVE (NEGATIVE); URINE BLOOD DIPSTICK TRACE-INTACT (NEGATIVE); URINE COLOR YELLOW; URINE GLUCOSE - DIPSTICK NEGATIVE (NEGATIVE); URINE KETONE NEGATIVE (NEGATIVE); URINE PH 5.5 (4.5-8.0); URINE PROTEIN - DIPSTICK NEGATIVE (NEG-TRACE); URINE SPECIFIC GRAVITY >=1.030; URINE UROBILINOGEN - DIPSTICK 0.2 E.U./dL (0.2)
[2019-11-21 18:08] LABS: URINE LEUK ESTERASE SMALL (NEGATIVE); URINE NITRITE - DIPSTICK POSITIVE (Negative)
[2019-11-21 18:13] LABS: URINE BACTERIA MODERATE hpf; URINE WBC 20-50 WBC/hpf (0-5)
[2019-11-21 18:25] LABS: ALKALINE PHOSPHATASE 104 u/l (38-126); BUN 22 mg/dL (8-23); BUN/CREATININE RATIO 48 (12-20 (CALC)); CHLORIDE 101 mmol/l (95-108); CREATININE 0.4 mg/dL (0.7-1.3); GFR > 60 ML/MIN (>=60 (CALC)); GFR FOR AFR.AMER. > 60 ML/MIN (>=60 (CALC)); POTASSIUM 4.6 mmol/l (3.5-5.1); SGOT/AST 26 u/l (19-48); SODIUM 132 mmol/l (137-146); TOTAL PROTEIN 7.5 g/dL (6.3-8.2)
[2019-11-21 18:28] LABS: ALBUMIN 3.7 g/dL (3.2-5.0); ANION GAP 16 (6-22 (CALC)); BILIRUBIN, TOTAL 0.8 mg/dL (0.0-1.4); CARBON DIOXIDE 20 mmol/l (22-30)
[2019-11-21 21:13] VITALS: BP 145/80
[2019-11-22 03:19] VITALS: BP 137/72
[2019-11-22 07:21] VITALS: BP 106/53
[2019-11-22 15:05] VITALS: BP 120/72
[2019-11-22 15:15] LABS: ANION GAP 12 (6-22 (CALC)); BUN 20 mg/dL (8-23); BUN/CREATININE RATIO 25 (12-20 (CALC)); CARBON DIOXIDE 22 mmol/l (22-30); CHLORIDE 104 mmol/l (95-108); CREATININE 0.8 mg/dL (0.7-1.3); GFR > 60 ML/MIN (>=60 (CALC)); GFR FOR AFR.AMER. > 60 ML/MIN (>=60 (CALC)); MAGNESIUM 2.1 mg/dL (1.6-2.3); POTASSIUM 4.5 mmol/l (3.5-5.1); SODIUM 134 mmol/l (137-146)
[2019-11-22 18:31] VITALS: BP 137/68
[2019-11-23] VITALS (7 sets, daily range): BP systolic 122–159; BP diastolic 65–84
[2019-11-24 04:13] VITALS: BP 157/79
[2019-11-24 05:25] LABS: HEMATOCRIT 33.4 % (39.0-50.0); HEMOGLOBIN 11.1 g/dl (14.0-18.0); IMMATURE GRANULOCYTES 0.3 % (0.0-5.0); MEAN CELL VOLUME 89.5 fL CALC (80.0-100.0); MEAN CORPUSCULAR HGB 29.8 pG CALC (26.0-32.0); MEAN CORPUSCULAR HGB CONC 33.2 g/L CALC (32.0-36.0); NEUT# 4.84 thou/uL (1.82-7.42); RED BLOOD COUNT 3.73 mill/uL (4.70-6.10); RED CELL DISTRI WIDTH 14.2 % (11.5-15.5)
[2019-11-24 05:36] LABS: ANION GAP 12 (6-22 (CALC)); BUN 15 mg/dL (8-23); BUN/CREATININE RATIO 35 (12-20 (CALC)); CARBON DIOXIDE 22 mmol/l (22-30); CHLORIDE 101 mmol/l (95-108); CREATININE 0.4 mg/dL (0.7-1.3); GFR > 60 ML/MIN (>=60 (CALC)); GFR FOR AFR.AMER. > 60 ML/MIN (>=60 (CALC)); POTASSIUM 4.1 mmol/l (3.5-5.1); SODIUM 131 mmol/l (137-146)
[2019-11-24 09:29] VITALS: BP 131/73
[2019-11-24 11:00] VITALS: BP 144/78
[2019-11-24 16:07] VITALS: BP 163/85
[2019-11-24 18:51] VITALS: BP 139/80
[2019-11-25] VITALS (7 sets, daily range): BP systolic 120–179; BP diastolic 67–93
[2019-11-26 03:28] VITALS: BP 139/72
[2019-11-26 06:00] LABS: HEMATOCRIT 35.9 % (39.0-50.0); HEMOGLOBIN 11.8 g/dl (14.0-18.0); IMMATURE GRANULOCYTES 0.4 % (0.0-5.0); MEAN CELL VOLUME 90.7 fL CALC (80.0-100.0); MEAN CORPUSCULAR HGB 29.8 pG CALC (26.0-32.0); MEAN CORPUSCULAR HGB CONC 32.9 g/L CALC (32.0-36.0); NEUT# 3.03 thou/uL (1.82-7.42); RED BLOOD COUNT 3.96 mill/uL (4.70-6.10); RED CELL DISTRI WIDTH 14.2 % (11.5-15.5)
[2019-11-26 06:23] LABS: ANION GAP 11 (6-22 (CALC)); BUN 14 mg/dL (8-23); BUN/CREATININE RATIO 29 (12-20 (CALC)); CARBON DIOXIDE 22 mmol/l (22-30); CHLORIDE 105 mmol/l (95-108); CREATININE 0.5 mg/dL (0.7-1.3); GFR > 60 ML/MIN (>=60 (CALC)); GFR FOR AFR.AMER. > 60 ML/MIN (>=60 (CALC)); SODIUM 134 mmol/l (137-146)
[2019-11-26 08:00] VITALS: BP 127/73
[2019-11-26 10:56] VITALS: BP 152/82
[2019-11-26] MEDS ORDERED: ROCEPHIN1 G1 IV (12:30)
[2019-11-26] MEDS ORDERED: NORVASC PO (12:30)
[2019-11-26 13:05] VITALS: BP 152/82
== END 2019-11-26 14:50 | DRG 689 ==
LOC: ED 15:45 → ED-I 18:52 → ED 19:02 → MS2 19:03
PROVIDERS: Nurse Practitioner Family; ADMIT Internal Medicine; ATTEND Internal Medicine
PROC: 3E0234Z Introduction of Serum, Toxoid and Vaccine into Muscle, Percutaneous Approach (ICD-10-PCS; principal; 2019-11-23)
PROC: 3E02340 Introduction of Influenza Vaccine into Muscle, Percutaneous Approach (ICD-10-PCS; 2019-11-23)
DX: N39.0 Urinary tract infection, site not specified (principal); G93.41 Metabolic encephalopathy; E87.1 Hypo-osmolality and hyponatremia; I10 Essential (primary) hypertension; J44.9 Chronic obstructive pulmonary disease, unspecified; M62.81 Muscle weakness (generalized); T46.5X6A Underdosing of other antihypertensive drugs, initial encounter; M06.9 Rheumatoid arthritis, unspecified; H91.90 Unspecified hearing loss, unspecified ear; F17.220 Nicotine dependence, chewing tobacco, uncomplicated; B96.1 Klebsiella pneumoniae [K. pneumoniae] as the cause of diseases classified elsewhere; Z85.038 Personal history of other malignant neoplasm of large intestine; Z23 Encounter for immunization
CPT/HCPCS: G0378; J1650

== ENCOUNTER 2020-07-04 11:06 | Inpatient (IN) | payer MEDICARE ==
[~2020-07-04] VITALS: Ht 177.8 cm; Wt 73.0 kg
[~2020-07-04 11:06] MED LIST changes: +NORVASC PO; +ROCEPHIN1 G1 IV
--- NOTE | 2020-07-04 11:06 | NUR ---
PT TO ROOM 14 VIA EMS.
[2020-07-04] MEDS ORDERED: PAROXETINE40 MG PO (11:21)
[2020-07-04] MEDS ORDERED: BREO ELLIPTA 101 INH IN (11:23)
[2020-07-04] MEDS ORDERED: SEROQUEL25 MG PO (11:24)
[2020-07-04] MEDS ORDERED: DULCOLAX10 MG RE (11:28)
[2020-07-04] MEDS ORDERED: MILK OF MAG30 ML/UDC PO (11:29)
--- NOTE | 2020-07-04 11:44 | NUR ---
The patient is confused as to where he is at. Waiting for xray.
[2020-07-04 11:51] LABS: HEMATOCRIT 36.4 % (39.0-50.0); HEMOGLOBIN 12.1 g/dl (14.0-18.0); IMMATURE GRANULOCYTES 0.5 % (0.0-5.0); MEAN CELL VOLUME 86.3 fL CALC (80.0-100.0); MEAN CORPUSCULAR HGB 28.7 pG CALC (26.0-32.0); MEAN CORPUSCULAR HGB CONC 33.2 g/dL CAL (32.0-36.0); NEUT# 13.04 thou/uL (1.82-7.42); RED BLOOD COUNT 4.22 mill/uL (4.70-6.10); RED CELL DISTRI WIDTH 13.7 % (11.5-15.5)
[2020-07-04 12:07] LABS: ALKALINE PHOSPHATASE 70 u/l (38-126); ANION GAP 9 (6-22 (CALC)); BUN 18 mg/dL (8-23); BUN/CREATININE RATIO 57 (12-20 (CALC)); CARBON DIOXIDE 19 mmol/l (22-30); CHLORIDE 109 mmol/l (95-108); CREATININE 0.3 mg/dL (0.7-1.3); GFR > 60 ML/MIN (>=60 (CALC)); GFR FOR AFR.AMER. > 60 ML/MIN (>=60 (CALC)); LIPASE 23 u/l (23-300); POTASSIUM 3.6 mmol/l (3.5-5.1); SGOT/AST 27 u/l (19-48); SODIUM 133 mmol/l (137-146)
[2020-07-04 12:08] LABS: ACT PARTIAL THROMBO TIME 25.9 SECONDS (20.0-32.5); PROTHROMBIN TIME 10.4 SECONDS (9.0-12.5)
[2020-07-04 12:10] LABS: ALBUMIN 2.7 g/dL (3.2-5.0); TOTAL PROTEIN 5.6 g/dL (6.3-8.2)
--- NOTE | 2020-07-04 13:00 | NUR ---
returned from xray
--- NOTE | 2020-07-04 13:23 | NUR ---
SBAR PRINTED TO FLOOR
[2020-07-04 13:49] LABS: URINE BILIRUBIN - DIPSTICK NEGATIVE (NEGATIVE); URINE BLOOD DIPSTICK TRACE-INTACT (NEGATIVE); URINE COLOR YELLOW; URINE GLUCOSE - DIPSTICK NEGATIVE (NEGATIVE); URINE KETONE NEGATIVE (NEGATIVE); URINE NITRITE - DIPSTICK NEGATIVE (Negative); URINE PROTEIN - DIPSTICK NEGATIVE (NEG-TRACE); URINE SPECIFIC GRAVITY 1.015
--- NOTE | 2020-07-04 14:04 | NUR ---
Contacted the Daughter and informed her of the situation, admission, possible surgery today or tomorrow. She sts that she lives in [facility] and would not be able to be here. She is the POA for her father.
[2020-07-04 14:05] LABS: URINE LEUK ESTERASE LARGE (NEGATIVE)
[2020-07-04 14:06] LABS: URINE BACTERIA FEW hpf; URINE EPITHELIAL CELLS FEW EPI/hpf (0-FEW); URINE RBC 0-2 RBC/hpf (0-5); URINE WBC 20-50 WBC/hpf (0-5)
--- NOTE | 2020-07-04 16:18 | NUR ---
The patient is confused, he has had to have instructions repeated multiple times, he was informed he was being transferred to [place].
[2020-07-04 18:03] VITALS: BP 105/63
--- NOTE | 2020-07-04 19:16 | NUR ---
report called to [place]
== END 2020-07-04 18:55 | disposition short-term general hospital (02) | DRG 394 ==
LOC: ED 11:06 → ED-I 13:03 → ED 13:22 → ICU 13:23 → ED 13:26 → ED-I 13:26 → ED 13:53 → ICU 18:55
PROVIDERS: ADMIT Internal Medicine; ATTEND Internal Medicine
DX: K66.8 Other specified disorders of peritoneum (principal); K92.0 Hematemesis; D72.829 Elevated white blood cell count, unspecified; F03.90 Unspecified dementia, unspecified severity, without behavioral disturbance, psychotic disturbance, mood disturbance, and anxiety; I10 Essential (primary) hypertension; H91.90 Unspecified hearing loss, unspecified ear; M06.9 Rheumatoid arthritis, unspecified; F17.200 Nicotine dependence, unspecified, uncomplicated; R82.71 Bacteriuria; Z85.038 Personal history of other malignant neoplasm of large intestine; Z20.828 Contact with and (suspected) exposure to other viral communicable diseases
CPT/HCPCS: Q9967

== ENCOUNTER 2021-12-09 14:32 | Emergency (ER) | payer MEDICARE, MEDICAID ==
[~2021-12-09] VITALS: Ht 177.8 cm; Wt 90.0 kg
[~2021-12-09 14:32] MED LIST changes: +BREO ELLIPTA 101 INH IN; +DULCOLAX10 MG RE; +PAROXETINE40 MG PO
[2021-12-09 16:49] LABS: IMMATURE GRANULOCYTES 0.2 % (0.0-5.0); MEAN CELL VOLUME 90.3 fL CALC (80.0-100.0); MEAN CORPUSCULAR HGB 29.8 pG CALC (26.0-32.0); NEUT# 7.17 thou/uL (1.82-7.42); RED BLOOD COUNT 4.76 mill/uL (4.70-6.10)
[2021-12-09 16:51] LABS: HEMOGLOBIN 14.2 g/dl (14.0-18.0)
[2021-12-09 17:03] LABS: ALBUMIN 3.7 g/dL (3.2-5.0); ALKALINE PHOSPHATASE 132 u/l (38-126); ANION GAP 11 (6-22 (CALC)); BUN 15 mg/dL (8-23); BUN/CREATININE RATIO 21 (12-20 (CALC)); CARBON DIOXIDE 30 mmol/l (22-30); CHLORIDE 101 mmol/l (95-108); CREATININE 0.7 mg/dL (0.7-1.3); GFR > 60 ML/MIN (>=60 (CALC)); GFR FOR AFR.AMER. > 60 ML/MIN (>=60 (CALC)); LIPASE 33 u/l (23-300); POTASSIUM 4.4 mmol/l (3.5-5.1); SGOT/AST 20 u/l (19-48); SODIUM 138 mmol/l (137-146); TOTAL PROTEIN 7.2 g/dL (6.3-8.2)
[2021-12-09 21:15] LABS: URINE BILIRUBIN - DIPSTICK NEGATIVE (NEGATIVE); URINE BLOOD DIPSTICK TRACE-INTACT (NEGATIVE); URINE COLOR YELLOW; URINE GLUCOSE - DIPSTICK NEGATIVE (NEGATIVE); URINE KETONE NEGATIVE (NEGATIVE); URINE LEUK ESTERASE NEGATIVE (NEGATIVE); URINE NITRITE - DIPSTICK POSITIVE (Negative); URINE PROTEIN - DIPSTICK NEGATIVE (NEG-TRACE); URINE SPECIFIC GRAVITY 1.015; URINE UROBILINOGEN - DIPSTICK 0.2 E.U./dL (0.2)
[2021-12-09 21:20] LABS: URINE BACTERIA MANY hpf; URINE SQUAMOUS EPITHELIAL CELL FEW EPI/hpf (0-FEW); URINE WBC 0-2 WBC/hpf (0-5)
[2021-12-09] MEDS ORDERED: BACTRIM DS1 TAB PO (21:52)
[2021-12-09 22:04] VITALS: BP 153/80
== END 2021-12-09 22:05 ==
LOC: ED 14:32
DX: N39.0 Urinary tract infection, site not specified (principal); M54.9 Dorsalgia, unspecified; M06.9 Rheumatoid arthritis, unspecified; I10 Essential (primary) hypertension; F03.90 Unspecified dementia, unspecified severity, without behavioral disturbance, psychotic disturbance, mood disturbance, and anxiety; H91.90 Unspecified hearing loss, unspecified ear; G89.29 Other chronic pain; F17.200 Nicotine dependence, unspecified, uncomplicated; B96.89 Other specified bacterial agents as the cause of diseases classified elsewhere; Z85.038 Personal history of other malignant neoplasm of large intestine; Z20.822 Contact with and (suspected) exposure to COVID-19
CPT/HCPCS: Q9967

== ENCOUNTER 2021-12-13 23:29 | Emergency (ER) | payer MEDICARE, MEDICAID ==
[~2021-12-13] VITALS: Ht 177.8 cm; Wt 72.0 kg
[~2021-12-13 23:29] MED LIST changes: +BACTRIM DS1 TAB PO
[2021-12-14 00:38] LABS: MEAN CELL VOLUME 90.8 fL CALC (80.0-100.0); MEAN CORPUSCULAR HGB 29.7 pG CALC (26.0-32.0); MEAN CORPUSCULAR HGB CONC 32.7 g/dL CAL (32.0-36.0); NEUT# 13.44 thou/uL (1.82-7.42); RED BLOOD COUNT 5.55 mill/uL (4.70-6.10); RED CELL DISTRI WIDTH 13.1 % (11.5-15.5)
[2021-12-14 00:39] LABS: HEMATOCRIT 50.4 % (39.0-50.0); HEMOGLOBIN 16.5 g/dl (14.0-18.0)
[2021-12-14 00:57] LABS: ALBUMIN 4.3 g/dL (3.2-5.0); ALKALINE PHOSPHATASE 145 u/l (38-126); BILIRUBIN, TOTAL 1.2 mg/dL (0.0-1.4); BUN 19 mg/dL (8-23); BUN/CREATININE RATIO 22 (12-20 (CALC)); CHLORIDE 102 mmol/l (95-108); CREATININE 0.9 mg/dL (0.7-1.3); GFR > 60 ML/MIN (>=60 (CALC)); GFR FOR AFR.AMER. > 60 ML/MIN (>=60 (CALC)); LIPASE 54 u/l (23-300); POTASSIUM 4.5 mmol/l (3.5-5.1); SGOT/AST 24 u/l (19-48); SODIUM 137 mmol/l (137-146); TOTAL PROTEIN 8.2 g/dL (6.3-8.2)
[2021-12-14 01:01] LABS: ACT PARTIAL THROMBO TIME 25.4 SECONDS (20.0-32.5); PROTHROMBIN TIME 10.7 SECONDS (9.0-12.5)
[2021-12-14 01:02] LABS: ANION GAP 19 (6-22 (CALC)); CARBON DIOXIDE 21 mmol/l (22-30)
[2021-12-14 03:30] VITALS: BP 174/94
== END 2021-12-14 03:30 | disposition short-term general hospital (02) ==
LOC: ED 23:29
DX: K92.0 Hematemesis (principal); I10 Essential (primary) hypertension; F03.90 Unspecified dementia, unspecified severity, without behavioral disturbance, psychotic disturbance, mood disturbance, and anxiety; H91.90 Unspecified hearing loss, unspecified ear; M06.9 Rheumatoid arthritis, unspecified; F17.200 Nicotine dependence, unspecified, uncomplicated; Z85.038 Personal history of other malignant neoplasm of large intestine; Z20.822 Contact with and (suspected) exposure to COVID-19
CPT/HCPCS: J2060; Q9967; S0164